=== PATIENT | male | born 1955 | race Caucasian/White ===

== ENCOUNTER → 2016-12-28 | Outpatient (CLI) | payer BC | LOC: M ADAMS 12:59 | PROVIDERS: ATTEND Physician Assistant Medical | DX: M10.072 Idiopathic gout, left ankle and foot (principal) ==

== ENCOUNTER → 2017-11-10 | Outpatient (CLI) | payer BC | LOC: M RAD 11:50 | DX: R51 Headache (principal) | CPT/HCPCS: 70450 ==

== ENCOUNTER 2017-11-15 17:05 | Emergency (ER) | payer BC ==
[2017-11-15] MEDS: traMADol 50 MG TAB PO ×2 (17:50→18:33)
[2017-11-15] MEDS: ACETAMINOPHEN 325 MG TAB PO (19:15)
[2017-11-15] MEDS: NORCO 5/325MG TABLET (BULK FOR ED) PO (20:01)
== END 2017-11-15 20:23 | disposition home or self-care (01) ==
LOC: M ED 17:05
DX: S00.83XA Contusion of other part of head, initial encounter (principal); W22.09XA Striking against other stationary object, initial encounter; Y92.89 Other specified places as the place of occurrence of the external cause; Z79.899 Other long term (current) drug therapy; Z79.82 Long term (current) use of aspirin; Z79.2 Long term (current) use of antibiotics
CPT/HCPCS: 99283

== ENCOUNTER → 2019-03-30 | Outpatient (REF) | payer BC ==
[~2019-03-30] MED LIST: ASPI81TA26 PO; ATOR1TAB19 PO; CEPH500C PO
== END ==
LOC: M LAB REF 17:40
PROVIDERS: ATTEND Internal Medicine
DX: M10.9 Gout, unspecified (principal)

== ENCOUNTER → 2020-01-24 | Outpatient (REF) | payer MEDICARE | LOC: M LAB REF 12:32 | PROVIDERS: ATTEND Internal Medicine | DX: M10.9 Gout, unspecified (principal) ==

== ENCOUNTER → 2021-01-29 | Outpatient (REF) | payer MEDICARE | LOC: M LAB REF 16:16 | PROVIDERS: ATTEND Internal Medicine | DX: Z01.84 Encounter for antibody response examination (principal) ==

== ENCOUNTER → 2021-01-31 | Outpatient (CLI) | payer MEDICARE ==
[~2021-01-31] MED LIST changes: +ISOVUE-370 76% 100ML VIAL As Ordered ONE; +ePHEDrine SULFATE 25 MG/5 ML(5MG/ML) SYRINGE As Ordered ONE
--- NOTE | 2021-01-31 10:02 | REP ---
INDICATION: HEMATURIA. COMPARISON: None. TECHNIQUE: Standard helical technique before and after the intravenous administration of [address] urogram was also obtained with MIP reformatted 3D images. FINDINGS: The lung bases are clear. The pre contrast enhanced portion of the examination shows no evidence of nephroureterolithiasis, hydronephrosis, or hydroureter. There are no urinary bladder calcifications. There are no choleliths. Hepatic and splenic densities are within normal limits. The contrast-enhanced portion of the exam shows the liver, gallbladder, spleen, pancreas, adrenal glands, and kidneys to be within normal limits. The abdominal aorta and para-aortic regions are within normal limits. The bowel loops and the mesenteries are within normal limits. There are a few sigmoid colon diverticula. There is no evidence of a mass or adenopathy. There is no free fluid or free air. CT urogram shows complete opacification of the renal collecting system bilaterally. There are no abnormal filling defects. Delayed imaging through the urinary bladder shows no evidence of a filling defect in the opacified portion. Bone window technique throughout the exam shows mild to moderate spinal degenerative changes. IMPRESSION: CT findings are within normal limits. <Electronically signed by Amari Wilkins > 01/31/21 0967
== END ==
LOC: M RAD 08:47
PROVIDERS: ATTEND Internal Medicine
DX: R31.0 Gross hematuria (principal)
CPT/HCPCS: 74178; Q9967

== ENCOUNTER → 2021-03-06 | Outpatient (REF) | payer MEDICARE ==
[~2021-03-06] MED LIST changes: -ISOVUE-370 76% 100ML VIAL As Ordered ONE; -ePHEDrine SULFATE 25 MG/5 ML(5MG/ML) SYRINGE As Ordered ONE
[2021-03-06 13:58] LABS: APPEARANCE, URINE CLEAR (CLEAR); BACTERIA, URINE AUTO NEGATIVE (NEGATIVE); BILIRUBIN, URINE AUTO NEGATIVE (NEGATIVE); BLOOD, URINE BLOOD NEGATIVE (NEGATIVE); COLOR, URINE STRAW (YELLOW); GLUCOSE, URINE (UA) AUTO NEGATIVE (NEGATIVE); KETONE, URINE AUTO NEGATIVE (NEGATIVE); LEUKOCYTE ESTERASE, URINE AUTO NEGATIVE (NEGATIVE); NITRITE, URINE AUTO NEGATIVE (NEGATIVE); PROTEIN, URINE AUTO NEGATIVE (NEGATIVE); RBC, URINE AUTO 0 /HPF (0-3); SPECIFIC GRAVITY URINE AUTO 1.002 (1.002-1.035); SQUAMOUS EPITHELIAL CELL UR AU 0 /HPF (0-6); UROBILINOGEN, URINE AUTO 0.2 mg/dL (0.0-2.0); WBC, URINE AUTO 0 /HPF (0-3)
== END ==
LOC: M SMT 13:03
PROVIDERS: ATTEND Nurse Practitioner Women's Health
DX: R31.0 Gross hematuria (principal)
CPT/HCPCS: 81001; 87086; 88108; G0463

== ENCOUNTER → 2021-11-11 | Outpatient (REF) | payer MEDICARE | LOC: M LAB REF 13:27 | PROVIDERS: ATTEND Physician Assistant Medical | DX: L03.119 Cellulitis of unspecified part of limb (principal) ==

== ENCOUNTER → 2023-10-09 | Outpatient (CLI) | payer MEDICARE | LOC: M PLAIMG 07:37 | PROVIDERS: ATTEND Internal Medicine | DX: I35.0 Nonrheumatic aortic (valve) stenosis (principal); R01.1 Cardiac murmur, unspecified ==

== ENCOUNTER → 2023-10-17 | Outpatient (CLI) | payer MEDICARE | LOC: M WUC 10:41 | PROVIDERS: ATTEND Nurse Practitioner Family | DX: K59.00 Constipation, unspecified (principal); R10.30 Lower abdominal pain, unspecified; R30.0 Dysuria ==

== ENCOUNTER → 2024-11-09 | Outpatient (CLI) | payer MEDICARE | LOC: M PLAIMG 09:14 | PROVIDERS: ATTEND Physician Assistant | DX: S46.212A Strain of muscle, fascia and tendon of other parts of biceps, left arm, initial encounter (principal); X58.XXXA Exposure to other specified factors, initial encounter; Y92.9 Unspecified place or not applicable ==